=== PATIENT | female | born 1995 | race Hispanic/Latino ===

== ENCOUNTER 2020-01-18 16:38 | Emergency (ER) | payer OTHER, SELFPAY ==
--- NOTE | 2020-01-18 17:56 | RAD ---
PA AND LATERAL CHEST: 01/18/20 HISTORY: Possible foreign body. Heart size and mediastinum are within normal limits. The lungs are clear of in filtrates. No significant bony findings. IMPRESSION: No active intrathoracic disease. POS: OFF
--- NOTE | 2020-01-18 18:02 | RAD ---
SOFT TISSUE VIEWS OF THE NECK TWO VIEWS: 01/18/20 HISTORY: Evaluation for foreign body. The epiglottis is normal in appearance. The retropharyngeal soft tissues are normal. I do not see any radiopaque foreign body. No airway narrowing. IMPRESSION: Unremarkable soft tissue views of the neck. POS: OFF
--- NOTE | 2020-01-18 18:03 | RAD ---
KUB AND UPRIGHT: 01/18/20 HISTORY: Evaluation for foreign body. This upright film does not include the hemidiaphragms but an upright taylor st does and shows no signs of free air. Bowel gas pattern is nonobstructed. There is a moderate amoun t of stool in the colon. I do not appreciate any definite radiopaque foreign bodies. IMPRESSION: No radiopaque foreign bodies identified. POS: OFF
== END 2020-01-18 18:10 | disposition home or self-care (01) ==
LOC: MADERS 16:38
DX: Z00.00 Encounter for general adult medical examination without abnormal findings (principal); F17.210 Nicotine dependence, cigarettes, uncomplicated
CPT/HCPCS: 70360; 71046; 74019

== ENCOUNTER 2023-11-16 13:32 | Emergency (ER) | payer MEDICAID, OTHER ==
[2023-11-16] MEDS ORDERED: NEOMYCIN-POLYMYXIN-HC EAR SUSP 200 DROP/10 ML BOT ONE (14:22)
== END 2023-11-16 14:30 | disposition home or self-care (01) ==
LOC: MADERS 13:32
DX: H60.503 Unspecified acute noninfective otitis externa, bilateral (principal); H73.91 Unspecified disorder of tympanic membrane, right ear; F17.210 Nicotine dependence, cigarettes, uncomplicated
CPT/HCPCS: 99282